=== PATIENT | male | born 2000 | race Asian ===

== ENCOUNTER 2023-02-17 21:12 | Emergency (ER) | payer SELFPAY ==
[~2023-02-17] VITALS: Ht 175.3 cm; Wt 75.0 kg
[2023-02-17 21:24] VITALS: BP 134/75; PULSE 97; RESP 14; TEMP 97.1; O2SAT 97
--- NOTE | 2023-02-17 23:50 | NUR ---
NOT IN LOBBY 1ST CALL
--- NOTE | 2023-02-18 00:02 | NUR ---
NOT IN LOBBY / OUTSIDE 2 ND CALL
== END 2023-02-18 00:11 | disposition left against medical advice (07) ==
LOC: ER 21:13
DX: M79.645 Pain in left finger(s) (principal); Z53.21 Procedure and treatment not carried out due to patient leaving prior to being seen by health care provider
CPT/HCPCS: 99281